=== PATIENT | female | born 1950 | race Caucasian/White ===

== ENCOUNTER 2016-07-25 19:50 | Emergency (ER) | payer MEDICARE ==
[2016-07-25 21:01] LABS: BASOPHIL 0.4 % (0-2); EOSINOPHIL 0.4 % (0-7); HCT 39.1 % (37.0-47.0); HGB 14.2 g/dl (12.5-16.0); LYMPHOCYTE 30.5 % (15-48); MCH 33.9 pg (25.0-31.0); MCHC 36.3 g/dL (32.0-36.0); MCV 93.3 fL (78.0-100.0); MONOCYTE 12.7 % (0-12); MPV 10.1 fL (6.0-9.5); PLT 236 K/uL (150-400); RBC 4.19 M/uL (4.20-5.40); RDW 11.9 % (11.5-14.0); WBC 6.9 K/uL (4.0-10.5)
[2016-07-25 21:09] LABS: INR 0.9 (0.9-1.2); PROTHROMBIN TIME 11.8 SECONDS (11.7-14.0); PTT 30.9 SECONDS (23.2-31.4)
[2016-07-25 21:18] LABS: ALBUMIN 4.8 g/dL (3.4-4.8); BILIRUBIN - TOTAL 0.3 mg/dL (0.1-1.0); CREATININE 0.6 mg/dL (0.5-1.0); GLOBULIN (CALCULATION) 2.8 g/dL (2.2-4.2); MAGNESIUM 1.94 mg/dL (1.40-2.10); TOTAL PROTEIN 7.6 g/dL (6.4-8.3)
[2016-07-25 21:19] LABS: CKMB 1.28 ng/mL (0.97-4.94); MYOGLOBIN 34 ng/mL (26-65); PRO-BNP 343 pg/mL (0-125); TROPONIN T < 0.010 ng/mL
== END 2016-07-25 22:44 | disposition home or self-care (01) ==
LOC: FER 19:50
PROVIDERS: Emergency Medicine
DX: I25.118 Atherosclerotic heart disease of native coronary artery with other forms of angina pectoris (principal); R60.0 Localized edema; I73.00 Raynaud's syndrome without gangrene; F17.200 Nicotine dependence, unspecified, uncomplicated; Z95.5 Presence of coronary angioplasty implant and graft
CPT/HCPCS: 36415; 71010; 80053; 82550; 82553; 83735; 83874; 83880; 84484; 85025; 85610; 85730; 93005

== ENCOUNTER 2021-12-14 21:30 | Inpatient (IN) | payer OTHER ==
[~2021-12-14] VITALS: Ht 160 cm; Wt 73.2 kg
[~2021-12-14 21:30] MED LIST: ADALAT CC60 MG PO; ARICEPT 5MG TABL5 MG PO; ASPIRIN325 MG PO; ATIVAN1 MG PO; BENTYL10 MG PO; CYPROHEPTADINE H4 MG PO; LYRICA 50MG CAP50 MG PO; MOBIC7.5 MG PO; NORCO 5-325 TA1 EACH PO; PRAVACHOL20 MG PO; PRILOSEC20 MG PO; REMERON15 MG PO; SYNTHROID25 MCG PO; TOPROL XL 50 MG50 MG PO; ZOLOFT100 MG PO
[2021-12-14 22:46] LABS: BASOPHIL 0.3 % (0-2); EOSINOPHIL 1.8 % (0-7); HCT 32.3 % (37.0-47.0); HGB 10.8 g/dl (12.5-16.0); MCH 32.7 pg (25.0-31.0); MCHC 33.4 g/dL (32.0-36.0); MCV 97.9 fL (78.0-100.0); MONOCYTE 4.7 % (0-12); MPV 11.3 fL (6.0-9.5); NEUTROPHIL 74.6 % (41-80); NRBC 0; PLT 111 K/uL (150-400); WBC 7.2 K/uL (4.0-10.5)
[2021-12-14 23:05] LABS: ALBUMIN 3.1 g/dL (3.4-5.0); BILIRUBIN - TOTAL 0.5 mg/dL (0.2-1.0); BUN/CREAT RATIO (CALC) 5.6 RATIO; CREATININE 3.06 mg/dL (0.51-0.95); GLOBULIN (CALCULATION) 3.2 g/dL; POTASSIUM 2.8 mmol/L (3.5-5.1); TOTAL PROTEIN 6.3 g/dL (6.4-8.2)
[2021-12-14 23:20] LABS: CORONAVIRUS 2019 SARS-COV-2 NEGATIVE (NEGATIVE); INFLUENZA A NAA NEGATIVE (NEGATIVE)
[2021-12-14 23:21] LABS: BILIRUBIN NEGATIVE (NEGATIVE); BLOOD 3+ Ery/uL (NEGATIVE); CLARITY HAZY (CLEAR); COLOR ORANGE (YELLOW); GLUCOSE (U) NORMAL (NORMAL); LEUKOCYTES TRACE Leu/uL (NEGATIVE); NITRITE NEGATIVE (NEGATIVE); PROTEIN 2+ mg/dL (NEGATIVE); UROBILINOGEN 0.2 mg/dL (0.2-1.0)
[2021-12-14 23:56] LABS: URINARY WBC RARE
[2021-12-14 23:58] LABS: AMORPHOUS URATES CRYSTALS MODERATE; BACTERIA 1+
[2021-12-14 23:59] LABS: GRANULAR CASTS TRACE
[2021-12-15 00:12] LABS: ACETAMINOPHEN (TYLENOL) <2.0 ug/mL (10.0-30.0); CPK >7000 U/L (26-192)
[2021-12-15 00:40] LABS: ECSTASY (MDMA) NEGATIVE (NEGATIVE); MARIJUANA (THC) NEGATIVE (NEGATIVE); METHADONE NEGATIVE (NEGATIVE); OPIATES POSITIVE (NEGATIVE)
[2021-12-15 00:42] LABS: AMPHETAMINES NEGATIVE (NEGATIVE); BARBITURATES NEGATIVE (NEGATIVE); OXYCODONE NEGATIVE (NEGATIVE)
[2021-12-15 06:58] LABS: HCT 34.2 % (37.0-47.0); HGB 11.2 g/dl (12.5-16.0); MCH 32.8 pg (25.0-31.0); MCHC 32.7 g/dL (32.0-36.0); MCV 100.3 fL (78.0-100.0); MPV 11.2 fL (6.0-9.5); RBC 3.41 M/uL (4.20-5.40); RDW 15.2 % (11.5-14.0); RETICULOCYTE COUNT 1.9 % (1.0-2.0); WBC 6.5 K/uL (4.0-10.5)
[2021-12-15 07:12] LABS: IRON % SATURATION 30.7 %SAT (20-50)
[2021-12-15] MEDS ORDERED: TORSEMIDE5 MG PO (07:53)
[2021-12-15 07:56] LABS: ALKALINE PHOSHATASE 159 U/L (46-116); ALT 273 U/L (14-59); BILIRUBIN - TOTAL 0.5 mg/dL (0.2-1.0); BUN 19 mg/dL (7-18); BUN/CREAT RATIO (CALC) 6.1 RATIO; CHLORIDE 108 mmol/L (98-107); CO2 (BICARBONATE) 23 mmol/L (21-32); CPK >7000 U/L (26-192); CREATININE 3.12 mg/dL (0.51-0.95); GLOBULIN (CALCULATION) 2.8 g/dL; GLUCOSE 93 mg/dL (74-106); MAGNESIUM 3.4 mg/dL (1.8-2.4); POTASSIUM 3.7 mmol/L (3.5-5.1); TOTAL PROTEIN 5.8 g/dL (6.4-8.2)
[2021-12-15] MEDS ORDERED: FEROSUL325 MG PO (07:57)
[2021-12-15] MEDS ORDERED: ROSUVASTATIN CA40 MG PO (07:57)
[2021-12-15] MEDS ORDERED: MELATONIN5 M2 PO (08:34)
[2021-12-15 09:45] LABS: AST 693 U/L (15-37)
[2021-12-16 06:11] LABS: INR 0.95 (0.9-1.2); PROTHROMBIN TIME 12.4 SECONDS (11.9-13.9)
[2021-12-16 06:29] LABS: ALBUMIN 2.8 g/dL (3.4-5.0); ALKALINE PHOSHATASE 156 U/L (46-116); ALT 217 U/L (14-59); AST 445 U/L (15-37); BILIRUBIN - TOTAL 0.4 mg/dL (0.2-1.0); BUN 22 mg/dL (7-18); BUN/CREAT RATIO (CALC) 5.9 RATIO; CHLORIDE 109 mmol/L (98-107); CO2 (BICARBONATE) 22 mmol/L (21-32); CPK >7000 U/L (26-192); CREATININE 3.75 mg/dL (0.51-0.95); GLOBULIN (CALCULATION) 2.7 g/dL; GLUCOSE 91 mg/dL (74-106); POTASSIUM 3.3 mmol/L (3.5-5.1); TOTAL PROTEIN 5.5 g/dL (6.4-8.2)
[2021-12-16 14:40] LABS: CREATININE 3.85 mg/dL (0.51-0.95); POTASSIUM 3.8 mmol/L (3.5-5.1)
[2021-12-17 06:20] LABS: HCT 30.6 % (37.0-47.0); HGB 10.2 g/dl (12.5-16.0); MCH 33.3 pg (25.0-31.0); MCHC 33.3 g/dL (32.0-36.0); MPV 11.1 fL (6.0-9.5); RBC 3.06 M/uL (4.20-5.40); WBC 6.8 K/uL (4.0-10.5)
[2021-12-17 07:40] LABS: ALBUMIN 2.5 g/dL (3.4-5.0); BILIRUBIN - DIRECT 0.1 mg/dL (0.00-0.20); BILIRUBIN - TOTAL 0.3 mg/dL (0.2-1.0); BUN/CREAT RATIO (CALC) 5.5 RATIO; GLOBULIN (CALCULATION) 2.5 g/dL; POTASSIUM 3.4 mmol/L (3.5-5.1)
[2021-12-18 07:29] LABS: BUN/CREAT RATIO (CALC) 6.3 RATIO; CREATININE 3.96 mg/dL (0.51-0.95); POTASSIUM 4.2 mmol/L (3.5-5.1)
[2021-12-18 16:47] LABS: HCT 30.8 % (37.0-47.0); HGB 9.9 g/dl (12.5-16.0); MCH 33.4 pg (25.0-31.0); MCHC 32.1 g/dL (32.0-36.0); MPV 10.4 fL (6.0-9.5); RBC 2.96 M/uL (4.20-5.40); RDW 16.7 % (11.5-14.0); WBC 6.7 K/uL (4.0-10.5)
[2021-12-18 16:48] LABS: MCV 104.1 fL (78.0-100.0)
[2021-12-18 17:08] LABS: BUN/CREAT RATIO (CALC) 7.1 RATIO; CREATININE 3.96 mg/dL (0.51-0.95); POTASSIUM 4.1 mmol/L (3.5-5.1)
[2021-12-18 17:19] LABS: MAGNESIUM 2.1 mg/dL (1.8-2.4)
[2021-12-18 17:20] LABS: LACTIC ACID <0.3 mmol/L (0.4-1.9)
[2021-12-19 06:43] LABS: BUN/CREAT RATIO (CALC) 7.1 RATIO; CREATININE 4.23 mg/dL (0.51-0.95); POTASSIUM 4.2 mmol/L (3.5-5.1)
[2021-12-20 08:07] LABS: BUN/CREAT RATIO (CALC) 7.5 RATIO; CREATININE 4.13 mg/dL (0.51-0.95); PHOSPHORUS 6.2 mg/dL (2.6-4.7); POTASSIUM 3.1 mmol/L (3.5-5.1)
[2021-12-20 08:27] LABS: BASOPHIL 0.6 % (0-2); EOSINOPHIL 4.1 % (0-7); HCT 28.6 % (37.0-47.0); HGB 9.5 g/dl (12.5-16.0); LYMPHOCYTE 21.3 % (15-48); MCHC 33.2 g/dL (32.0-36.0); MONOCYTE 8.9 % (0-12); MPV 10.8 fL (6.0-9.5); NEUTROPHIL 64.3 % (41-80); NRBC 0; PLT 108 K/uL (150-400); RBC 2.88 M/uL (4.20-5.40); RDW 16.8 % (11.5-14.0); WBC 5.1 K/uL (4.0-10.5)
[2021-12-20 08:28] LABS: MCV 99.3 fL (78.0-100.0)
== END 2021-12-20 15:40 | disposition other institution (70) | DRG 564 ==
LOC: FER 21:30 → FMS 12-15 01:31 → FTCU 12-18 17:47
PROVIDERS: Emergency Medicine; Family Medicine; Nurse Practitioner Acute Care; ADMIT Internal Medicine
PROC: B24BZZZ Ultrasonography of Heart with Aorta (ICD-10-PCS; principal; 2021-12-16)
DX: T79.6XXA Traumatic ischemia of muscle, initial encounter (principal); K72.00 Acute and subacute hepatic failure without coma; E87.2 Acidosis; N17.9 Acute kidney failure, unspecified; I47.1 Supraventricular tachycardia; Z66 Do not resuscitate; I49.5 Sick sinus syndrome; I48.0 Paroxysmal atrial fibrillation; I25.10 Atherosclerotic heart disease of native coronary artery without angina pectoris; E83.39 Other disorders of phosphorus metabolism; S00.93XA Contusion of unspecified part of head, initial encounter; W19.XXXA Unspecified fall, initial encounter; I08.1 Rheumatic disorders of both mitral and tricuspid valves; Z20.822 Contact with and (suspected) exposure to COVID-19; E03.9 Hypothyroidism, unspecified; F32.A Depression, unspecified; G89.29 Other chronic pain; M54.9 Dorsalgia, unspecified; I10 Essential (primary) hypertension; E78.5 Hyperlipidemia, unspecified; I73.00 Raynaud's syndrome without gangrene; K21.9 Gastro-esophageal reflux disease without esophagitis; D64.9 Anemia, unspecified; D69.6 Thrombocytopenia, unspecified; R10.2 Pelvic and perineal pain; E16.2 Hypoglycemia, unspecified; E87.6 Hypokalemia; F41.9 Anxiety disorder, unspecified; Z87.891 Personal history of nicotine dependence; Z98.61 Coronary angioplasty status; Z88.0 Allergy status to penicillin; I25.2 Old myocardial infarction; Z79.899 Other long term (current) drug therapy
CPT/HCPCS: 36415; 70450; 71045; 72125; 72170; 73100; 73502; 80048; 80053; 80076; 80305; 81001; 82550; 82607; 82728; 83036; 83540; 83550; 83605; 83735; 83880; 84100; 84443; 84484; 85025; 85379; 85610; 87040; 93005; 94010; 94760; 94762; 97116; 97162; 97166; 97530; 97535; G0480; J1644; J1940; J2001; J2405; J3475; J3480; J7030; J7050; J7070; J7120; U0002